=== PATIENT | male | born 1995 | race American Indian/Alaskan Native ===

== ENCOUNTER 2017-11-03 00:27 | Emergency (ER) | payer SELFPAY ==
--- NOTE | 2017-11-03 01:26 | XRay Report ---
FINAL REPORT PROCEDURE: XR FOREARM RT TECHNIQUE: RIGHT forearm radiographs, AP and lateral views. CPT 71630 HISTORY: RT FOREARM CUT WITH GLASS COMPARISON: No prior studies are available for comparison. FINDINGS: Fracture (s) and/or Dislocation(s): None . Joint space(s): Normal . Soft tissues: Normal . Bone mineralization: Normal . Foreign bodies: None . IMPRESSION: There is no evidence of an acute fracture. No evidence of a radiopaque foreign object.
== END 2017-11-03 12:31 | disposition left against medical advice (07) ==
LOC: ED 00:27
DX: Z53.21 Procedure and treatment not carried out due to patient leaving prior to being seen by health care provider (principal)

== ENCOUNTER 2017-11-04 17:41 | Emergency (ER) | payer SELFPAY ==
[2017-11-04 17:49] VITALS: BP 118/75
[2017-11-04] MEDS ORDERED: BOOSTRIX IM ONE (18:06)
[2017-11-04] MEDS ORDERED: XYLOCAINE 1% 20 mL INFILTRATI ONE (18:06)
[2017-11-04] MEDS ORDERED: NORCO 5/325 PO ONE (18:06)
[2017-11-04] MEDS ORDERED: TRIPLE ANTIBIOTIC TP ONE (18:06)
[2017-11-04] MEDS ORDERED: NACL 0.9% IR ONE (18:06)
--- NOTE | 2017-11-04 18:06 | Emergency Department Report ---
Blank Doc - Documentation Documentation: Patient is a 22-year-old F Ortiz male who cut his right wrist some glass 2 days prior to arrival. Patient try to come to the hospital that day but left without being seen. Patient does still have some bleeding to this wound does not appear to be any early stages of healing as of right now. Wound is gaping open and the flexor tendons on the wrist are partially exposed. Patient be moved to a treatment room and will have to loose stitches placed to better approximate the wound patient be also placed on some antibiotics as well
--- NOTE | 2017-11-04 19:23 | Emergency Department Report ---
ED Laceration HPI - HPI Chief Complaint: Wound/Laceration Stated Complaint: ARM PAIN Time Seen by Provider: 11/04/17 17:59 Occurred When: Before Yesterday (2 days ago) Location: Upper Extremity (right wrist) Severity: moderate Tetanus Status: Not up to Date Laceration Symptoms: Yes Pain, No Foreign Body Sensation, No Numbness, No Weakness Other History: This is a 22 y.o. A.A. male presents with laceration to right anterior wrist for 2 days. He came to ER when it originally happened around 0 night. States he was helping a friend move and the bag he moved had broken glass that caught right wrist. He cleaned area with soap and water and came to ER. Pain is 7/10 on pain scale and worse with touch. He is not taking anything for pain. There is bloody discharge. Wound is not closing. ED Review of Systems ROS: Stated complaint: ARM PAIN Other details as noted in HPI Constitutional: denies: chills, fever Respiratory: denies: cough, shortness of breath, wheezing Cardiovascular: denies: chest pain, palpitations Gastrointestinal: denies: abdominal pain, nausea, diarrhea Musculoskeletal: denies: back pain, joint swelling, arthralgia Skin: other (laceration to right wrist). denies: rash, lesions ED Past Medical Hx - Past Medical History Previous Medical History?: No - Surgical History Past Surgical History?: No - Social History Smoking Status: Never Smoker Substance Use Type: Alcohol, Marijuana Laceration Physical Exam - Exam General: Vital signs noted. No distress. Alert and acting appropriately. Wound Length (cm): 2 Laceration Location: Upper Extremity (exposed tendon, sanguineous discharge, wound tissue moist, no odor, flap nonadherent to wound base) Laceration Exam: Yes Exposed Tendon, Vessel, or Nerve, Yes Normal Distal CMS, No Foreign Body, No Tendon Injury ED Course Vital Signs 11/04/17 17:45 Temperature 98.3 F Pulse Rate 89 Respiratory 18 Rate Blood Pressure 118/75 O2 Sat by Pulse 98 Oximetry ED Medical Decision Making - Medical Decision Making This is a 22 y.o. male presents with right wrist laceration x 2 days. Patient examined by me and Katey Barfield. Patient is non-toxic appearing and stable. Physical examination of exposed tendon, sanguineous discharge, wound tissue moist, no odor, flap nonadherent to wound base. Lightly closed with 3 loose sutures. Discharged home. Discussed ER care plan with patient. Patient agreed with plan. F/U with PCP. Critical care attestation.: If time is entered above; I have spent that time in minutes in the direct care of this critically ill patient, excluding procedure time. ED Disposition Clinical Impression: Laceration Laceration of wrist, right Qualifiers: Encounter type: initial encounter Qualified Code(s): S61.511A - Laceration without foreign body of right wrist, initial encounter Disposition: TO HOME OR SELFCARE Is pt being admited?: No Does the pt Need Aspirin: No Condition: Stable Instructions: Suture Care (ED), Laceration (ED) Additional Instructions: Return to Primary Care Provider or ER in 7-10 days to have sutures removed. Follow up with Orthopedic Surgery for evaluation of healing. Review referral area of discharge. Return to ER if fever, smelly discharge, swelling, redness, or pain becomes worse. Referrals: AZEB WILSON MD [Staff Physician] - 3-5 Days [facility] [Outside] - 3-5 Days [facility] [Outside] - 3-5 Days [facility] [Outside] - 3-5 Days Time of Disposition: 20:02 Print Language: YI
== END 2017-11-04 20:23 | disposition home or self-care (01) ==
LOC: ED 17:41
DX: S61.511A Laceration without foreign body of right wrist, initial encounter (principal); W25.XXXA Contact with sharp glass, initial encounter; Y93.89 Activity, other specified; Y92.89 Other specified places as the place of occurrence of the external cause; Y99.8 Other external cause status
CPT/HCPCS: 90471; 90715; 96372; 99282; A6250

== ENCOUNTER 2017-11-11 14:02 | Emergency (ER) | payer SELFPAY ==
--- NOTE | 2017-11-11 16:06 | Emergency Department Report ---
ED Recheck HPI - General Chief Complaint: Laceration/Recheck/Suture Stated Complaint: SUTURE REMOVAL Time Seen by Provider: 11/11/17 15:43 Source: patient, family Mode of arrival: Ambulatory Limitations: No Limitations - History of Present Illness Initial Comments: Patient had laceration on 11/04/2017 and here to have stitches removed. No reflect that patient had delayed treatment 2 days.. He had laceration to his right wrist that he said he injured with a piece of glass. X-ray did not show any foreign body. Patient present to the emergency room 2 days later for laceration repair. Laceration was appeared loosely with 3 stitches and patient is here today to have stitches removed. Patient denies any complaints. He said he got tetanus vaccine last week. pain is 0/10 MD Complaint: wound re-check Onset/Timin -: week(s) Initial Visit For: laceration (delay treatment 2 days) Returns Today for: staple/Stitch removal Symptoms Since Prior Visit: no new symptoms Context: planned re-check Associated Symptoms: none Treatments Prior to Arrival: other (none) - Related Data Previous Rx's Medication Instructions Recorded Last Taken Type Cephalexin [Keflex] 500 mg PO Q8HR 7 Days #21 cap 11/11/17 Unknown Rx Ibuprofen [Motrin] 600 mg PO Q8H PRN #12 tablet 11/11/17 Unknown Rx Allergies Allergy/AdvReac Type Severity Reaction Status Date / Time No Known Allergies Allergy Unverified 11/03/17 00:34 ED Review of Systems ROS: Stated complaint: SUTURE REMOVAL Other details as noted in HPI Comment: All other systems reviewed and negative Constitutional: no symptoms reported Respiratory: no symptoms reported Cardiovascular: denies: chest pain, palpitations, dyspnea on exertion, edema, syncope, paroxysmal nocturnal dyspnea Gastrointestinal: denies: nausea, vomiting Musculoskeletal: denies: back pain, joint swelling, arthralgia, myalgia Skin: other (laceration with stitches) Neurological: denies: headache ED Past Medical Hx - Past Medical History Previous Medical History?: No - Surgical History Past Surgical History?: No - Family History Family history: no significant - Social History Smoking Status: Current Every Day Smoker Substance Use Type: None, Marijuana - Medications Home Medications: Home Medications Medication Instructions Recorded Confirmed Last Taken Type Cephalexin [Keflex] 500 mg PO Q8HR 7 Days #21 cap 11/11/17 Unknown Rx Ibuprofen [Motrin] 600 mg PO Q8H PRN #12 tablet 11/11/17 Unknown Rx ED Physical Exam - General Limitations: No Limitations General appearance: alert, in no apparent distress - Head Head exam: Present: atraumatic, normocephalic, normal inspection - Eye Eye exam: Present: normal appearance, PERRL, EOMI Pupils: Present: normal accommodation - ENT ENT exam: Present: normal exam, normal orophraynx, mucous membranes moist - Neck Neck exam: Present: normal inspection, full ROM, other (no C-spine tenderness). Absent: tenderness, meningismus, lymphadenopathy, thyromegaly - Respiratory Respiratory exam: Present: normal lung sounds bilaterally. Absent: respiratory distress, chest wall tenderness - Cardiovascular Cardiovascular Exam: Present: normal rhythm, tachycardia, normal heart sounds. Absent: systolic murmur, diastolic murmur - GI/Abdominal GI/Abdominal exam: Present: soft, normal bowel sounds. Absent: distended, tenderness, guarding, rebound, rigid, organomegaly, mass, bruit, pulsatile mass - Extremities Exam Extremities exam: Present: normal inspection, other (no clubbing, cyanosis or edema. +2 pulses to all extremities. No neurovascular compromise. No signs of tendon injury. +5/5 strength in all extremities. Patient with good color, sensation, movement and temperature to extremities included in both hands and wrists.), full ROM, normal capillary refill. Absent: tenderness, pedal edema, joint swelling, calf tenderness - Neurological Exam Neurological exam: Present: alert, oriented X3, normal gait, reflexes normal. Absent: motor sensory deficit - Psychiatric Psychiatric exam: Present: normal affect, normal mood - Skin Skin exam: Present: warm, dry, intact, normal color, other (laceration with stitches) - Expanded Skin Exam Expanded Type of lesion: Present: laceration (laceration with stitches) Distribution of rash: RUE (right wrist) Description of rash: Present: tenderness, erythematous, discharge (skin amount of yellow drainage), other (wound edges of laceration well approximated. Flap- like wound. Mild erythema around edges). Absent: swelling, urticarial, crusting, fluctuant, indurated ED Course Vital Signs 11/11/17 14:24 Temperature 98.1 F Pulse Rate 104 H Respiratory 16 Rate Blood Pressure 97/54 O2 Sat by Pulse 100 Oximetry Vital Signs 11/11/17 11/11/17 14:24 16:31 Temperature 98.1 F Pulse Rate 104 H 88 Respiratory 16 Rate Blood Pressure 97/54 O2 Sat by Pulse 100 Oximetry - Reevaluation(s) Reevaluation #1: 11/11/17 16:31 Patient stable. 3 stitches removed from laceration to right wrist. Laceration with mild cellulitis around edges and scant yellow drainage. Patient was is without fever. ED Recheck MDM - Medical Decision Making ED course: Patient status post laceration repair 7 days ago. He had injury to his right wrist 9 days ago and presented to emergency room 2 days after injury for laceration repair. He was seen by Dr. Barton and nurse practitioner Chuy . He had 3 stitches placed to his flap-like wound 7 days ago. They were loosely placed because of delayed presentation for treatment. Stitches removed from laceration site. Wound edges well approximated but patient with mild erythema and tenderness to palpate with some scant drainage from site. Patient was given tetanus vaccine and will be placed on Keflex for cellulitis. Patient is stable and instruction given on wound care. He voices understanding and. Patient does not have any difficulty moving his extremities and full range of motion to his wrist and fingers of both hands. No signs of tendon injuries. Patient discharged home in stable condition with prescription for Keflex and Motrin. Critical care attestation.: If time is entered above; I have spent that time in minutes in the direct care of this critically ill patient, excluding procedure time. ED Disposition Clinical Impression: Visit for suture removal, Wound infection Disposition: TO HOME OR SELFCARE Is pt being admited?: No Does the pt Need Aspirin: No Condition: Stable Instructions: Wound Infection (ED), Suture Removal (ED) Additional Instructions: Please keep affected area clean and dry Follow-up with primary care physician in 2-3 days and if you do not have one he can follow-up at [facility] If you develop, increased redness, swelling, increased drainage, fever and/or chills and difficulty moving fingers to right hand please return to the emergency room ELDA. Take antibiotic as prescribed Prescriptions: Cephalexin [Keflex] 500 mg PO Q8HR 7 Days #21 cap Ibuprofen [Motrin] 600 mg PO Q8H PRN #12 tablet PRN Reason: Pain Referrals: [facility] [Outside] - 2-3 Days Forms: Accompanied Note, Work/School Release Form(ED)
[2017-11-11 16:49] VITALS: BP 100/62
== END 2017-11-11 16:49 | disposition home or self-care (01) ==
LOC: ED 14:02
DX: L03.113 Cellulitis of right upper limb (principal); F17.200 Nicotine dependence, unspecified, uncomplicated; F12.10 Cannabis abuse, uncomplicated
CPT/HCPCS: 99282

== ENCOUNTER 2020-10-13 13:38 | Emergency (ER) | payer SELFPAY ==
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
[2020-10-13 15:01] VITALS: BP 117/75
[2020-10-13] MEDS ORDERED: DIPHtheria,PERTUSSIS(ACELL),TETANUS VACCINE/PF 0.5 ML VIAL IM ONE (16:10)
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
== END 2020-10-13 17:04 | disposition home or self-care (01) ==
LOC: ED 13:38
DX: S01.81XA Laceration without foreign body of other part of head, initial encounter (principal); S01.01XA Laceration without foreign body of scalp, initial encounter; Z79.899 Other long term (current) drug therapy; W26.0XXA Contact with knife, initial encounter; Y93.89 Activity, other specified; Y92.89 Other specified places as the place of occurrence of the external cause; Y99.8 Other external cause status
CPT/HCPCS: 90471; 90715; 99281

== ENCOUNTER 2020-11-01 14:57 | Emergency (ER) | payer SELFPAY ==
[2020-11-01 15:15] VITALS: BP 157/99
--- NOTE | 2020-11-01 15:27 | Emergency Department Report ---
ED General Adult HPI - General Chief complaint: Laceration/Recheck/Suture Stated complaint: STABLES REMOVED FROM HEAD Time Seen by Provider: 11/01/20 15:19 Source: patient Mode of arrival: Ambulatory Limitations: No Limitations - History of Present Illness Initial comments: 25-year-old male presents to the ER today for staple removal. Patient had kailash placed in his scalp about 2 weeks ago. Patient reports mild soreness to the area but otherwise no other symptoms. Complaint: Staple removal -: week(s) (2) Location: head Radiation: non-radiation Severity scale (0 -10): 3 Consistency: intermittent Associated Symptoms: denies other symptoms - Related Data Previous Rx's Medication Instructions Recorded Last Taken Type cephALEXin [Keflex] 500 mg PO Q8HR 7 Days #21 cap 11/11/17 Unknown Rx Ibuprofen [Motrin 600 MG tab] 600 mg PO Q8H PRN #12 tablet 06/11/20 Unknown Rx Ibuprofen [Motrin 600 MG tab] 600 mg PO Q8H PRN #14 tablet 10/13/20 Unknown Rx cephALEXin [Keflex] 500 mg PO QID 7 Days #28 cap 10/13/20 Unknown Rx Allergies Allergy/AdvReac Type Severity Reaction Status Date / Time No Known Allergies Allergy Unverified 11/03/17 00:34 ED Review of Systems ROS: Stated complaint: STABLES REMOVED FROM HEAD Other details as noted in HPI Comment: All other systems reviewed and negative Skin: other (Laceration status post staple placement scalp) ED Past Medical Hx - Past Medical History Previous Medical History?: No - Surgical History Past Surgical History?: No - Social History Smoking Status: Never Smoker Substance Use Type: None - Medications Home Medications: Home Medications Medication Instructions Recorded Confirmed Last Taken Type cephALEXin [Keflex] 500 mg PO Q8HR 7 Days #21 cap 11/11/17 Unknown Rx Ibuprofen [Motrin 600 MG tab] 600 mg PO Q8H PRN #12 tablet 06/11/20 Unknown Rx Ibuprofen [Motrin 600 MG tab] 600 mg PO Q8H PRN #14 tablet 10/13/20 Unknown Rx cephALEXin [Keflex] 500 mg PO QID 7 Days #28 cap 10/13/20 Unknown Rx ED Physical Exam - General Limitations: No Limitations General appearance: alert, in no apparent distress - Head Head exam: Present: normocephalic, other (Repaired laceration noted to the left parietal area just above the left ear. 3 kailash noted. Moderate amount of crusting. No apparent signs of infection. No tenderness to palpation.) - Respiratory Respiratory exam: Absent: respiratory distress - Cardiovascular Cardiovascular Exam: Present: regular rate - Neurological Exam Neurological exam: Present: alert, oriented X3, CN II-XII intact - Psychiatric Psychiatric exam: Present: normal affect, normal mood - Skin Skin exam: Present: intact ED Course Vital Signs 11/01/20 15:14 Temperature 98.6 F Pulse Rate 105 H Respiratory 18 Rate Blood Pressure 157/99 [Right] O2 Sat by Pulse 100 Oximetry - Procedure Description Procedures done: Staple removal. Location: Left parietal scalp. All 3 kailash removed. Wound appears to be healing well without any apparent signs of infection Critical care attestation.: If time is entered above; I have spent that time in minutes in the direct care of this critically ill patient, excluding procedure time. ED Disposition Clinical Impression: Encounter for staple removal Disposition: TO HOME OR SELFCARE Is pt being admited?: No Does the pt Need Aspirin: No Condition: Stable Instructions: Wound Closure Removal, Care After Additional Instructions: You can now use a gentle shampoo to wash your hair. Do not pick at the scabs. Follow-up as needed with your primary care doctor. Return to the ER if anything changes or worsens Referrals: NOMAN ROWAN MD [Staff Physician] - as needed Time of Disposition: 15:27
== END 2020-11-01 15:32 | disposition home or self-care (01) ==
LOC: ED 14:57
DX: S01.01XD Laceration without foreign body of scalp, subsequent encounter (principal); Z79.899 Other long term (current) drug therapy; X58.XXXD Exposure to other specified factors, subsequent encounter

== ENCOUNTER 2020-12-03 17:37 | Emergency (ER) | payer SELFPAY | END 2020-12-03 17:49 | disposition left against medical advice (07) | LOC: ED 17:37 | DX: Z53.21 Procedure and treatment not carried out due to patient leaving prior to being seen by health care provider (principal) ==